=== PATIENT | female | born 1985 | race Two or more races ===

== ENCOUNTER 2019-01-02 07:15 | Inpatient (IN) | payer OTHER ==
[2019-01-02 08:35] VITALS: BMI 33.6
[2019-01-02 09:10] LABS: BASO % 0.2 % (0-2.0); EOS % 1.3 % (0-4.5); HEMATOCRIT 35.1 % (32.4-45.2); HEMOGLOBIN 11.7 GM/dL (10.7-15.3); LYMPH % 15.4 % (8-40); MCH 27.4 pg (25.7-33.7); MCHC 33.2 g/dl (32.0-36.0); MEAN CELL VOLUME 82.4 fl (80-96); MEAN PLT VOLUME 8.5 fl (7.5-11.1); MONO % 5.2 % (3.8-10.2); NEUT % 77.9 % (42.8-82.8); PLATELET COUNT 234 K/MM3 (134-434); RBC 4.26 M/mm3 (3.60-5.2); RDW 15.1 % (11.6-15.6); WHITE BLOOD COUNT 12.1 K/mm3 (4.0-10.0)
[2019-01-02 09:17] LABS: INR 0.92 (0.83-1.09); PROTHROMBIN TIME (PATIENT) 10.8 SEC (9.7-13.0)
[2019-01-02 09:20] LABS: ACTIVATED PTT 27.6 SECONDS (25.2-36.5)
[2019-01-02 09:50] LABS: BLOOD UREA NITROGEN 15.3 mg/dL (7-18); CALCIUM 9.8 mg/dL (8.5-10.1); CREATININE 0.6 mg/dL (0.55-1.3); POTASSIUM 3.9 mmol/L (3.5-5.1)
--- NOTE | 2019-01-02 10:54 | HP ---
Past Medical History - Primary Care Physician PCP:: Casandra Yost - Admission Chief Complaint: Cervidil induction. insulin dependent diabetes History Source: Patient Limitations to Obtaining History: No Limitations - Past Medical History ...: 6 ...Para: 1 ...Term: 1 ...: 0 ...Spon : 1 ...Induced : 3 ...Multiple Gestation: 0 ...EDC by Sono: 01/11/19 - Past Surgical History Hx Myomectomy: No Hx Transabdominal Cerclage: No - Smoking History Smoking history: Never smoked - Alcohol/Substance Use Hx Alcohol Use: No History of Substance Use: reports: None - Social History History of Recent Travel: No Home Medications - Allergies Allergies/Adverse Reactions: Allergies Allergy/AdvReac Type Severity Reaction Status Date / Time No Known Allergies Allergy Verified 11/30/18 16:50 - Home Medications Home Medications: Ambulatory Orders Insulin Aspart [Novolog] 30 units SQ TID 11/16/18 Insulin Detemir [Levemir Flextouch] 70 units SQ HS 11/16/18 Metformin HCl [Glucophage] 1 tab PO BID 11/16/18 Vits96/Iron Fum/Folic [ Tablet] 1 tab PO DAILY 11/16/18 Review of Systems - Review of Systems Constitutional: reports: No Symptoms Eyes: reports: No Symptoms HENT: reports: No Symptoms Neck: reports: No Symptoms Cardiovascular: reports: No Symptoms Respiratory: reports: No Symptoms Gastrointestinal: reports: No Symptoms Genitourinary: reports: No Symptoms Breasts: reports: No Symptoms Reported Musculoskeletal: reports: No Symptoms Integumentary: reports: No Symptoms Neurological: reports: No Symptoms Endocrine: reports: No Symptoms Hematology/Lymphatic: reports: No Symptoms Psychiatric: reports: No Symptoms Physical Exam - Maternity Vital Signs: Vital Signs Temperature 98.3 F 01/02/19 09:00 Pulse Rate 89 01/02/19 10:00 Respiratory Rate 20 01/02/19 10:00 Blood Pressure 128/77 01/02/19 10:00 O2 Sat by Pulse Oximetry (%) Constitutional: Yes: Well Nourished, No Distress Cardiovascular: Yes: WNL Lungs: Clear to auscultation Breast(s): Yes: WNL - Abdominal Exam/OB Fundal Height: 40 Number of Fetuses: Single Presentation: Vertex Contractions: No Monitor Mode: External Heart Rate (range): 140 Heart Rate Location: [facility] Category: I - Vaginal Exam/OB Dilatation (cm): 2 Effacement (%): 70 Amniotic Membrane Status: Intact Presentation: Vertex/Position - Physical Exam Musculoskeletal: Yes: WNL Extremities: Yes: WNL - Labs Lab Results: CBC, BMP 01/02/19 08:33 01/02/19 08:33 Hemorrhage Risk Assessment - Risk Factors Risk Score: 1 Risk Level: Medium Risk Problem List - Problems (1) Diabetes mellitus, insulin dependent (IDDM), controlled Code(s): E11.9 - TYPE 2 DIABETES MELLITUS WITHOUT COMPLICATIONS; Z79.4 - RESIDENTIAL (CURRENT) USE OF INSULIN (2) 38 weeks gestation of Code(s): Z3A.38 - 38 WEEKS GESTATION OF Assessment/Plan IDDm - controlled by insulin AM novolog 20 metformin 100 BID levemir 70 units at bedtime 38.6 week Cat 1 Plan cervidil ada diet metformin 1000mg BID levamir 70units HS novalog 30 AC
[2019-01-02] MEDS ORDERED: BUTORPHANOL TARTRATE 1 MG/ML VIAL IVPB ONE (10:57)
[2019-01-02 11:30] LABS: ALBUMIN 2.8 g/dl (3.4-5.0); BILIRUBIN,TOTAL 0.3 mg/dL (0.2-1); TOT PROT 6.4 g/dl (6.4-8.2)
[2019-01-02] MEDS ORDERED: DINOPROSTONE 10 MG VAGINAL SUPPOSITORY VG ONE (11:45)
[2019-01-02] MEDS: INSULIN (NOVOLOG) ASPART 100 UNITS/ML 10ML VIAL SQ SCH ×2 (12:07→17:30)
[2019-01-02] MEDS: ELECTROLYTE-148 SOLN 1,000 ML IV SCH (16:00)
[2019-01-02] MEDS: metFORMIN HCL 500 MG TABLET (FP) PO SCH (18:33)
[2019-01-02] MEDS: INSULIN (LEVEMIR) 100 UNITS/ML UNITS SQ SCH (22:10)
--- NOTE | 2019-01-02 22:32 | PN ---
Ante-Partal Exam - Subjective Subjective: Pt desires pitocin Vital Signs: Vital Signs Temperature 98.2 F 01/02/19 18:00 Pulse Rate 93 H 01/02/19 18:00 Respiratory Rate 20 01/02/19 18:00 Blood Pressure 130/74 01/02/19 18:00 O2 Sat by Pulse Oximetry (%) Bleeding: No Headache: No - Contractions Contractions: Yes Regularity: Irregular Monitor Mode: External - Exam during Labor Variability: Moderate Heart Rate Location: [facility] Category: I Monitor Decelerations: None Exam: Vaginal Amniotic Membrane Status: Intact Presentation: Vertex - Intrapartum Hemorrhage Risk Risk Score: 0 Risk Level: Low Risk - Assessment/Plan Assessment/Plan: Prodromal labor IUP at 41 week Plan Pitocin augmentation
[2019-01-02] MEDS ORDERED: OXYTOCIN 30 UNITS in 0.9% NS 30 UNIT/500 ML INFUS.BAG IVPB SCH (23:00)
--- NOTE | 2019-01-02 23:00 | LDN ---
Oxytocin Pre-Use Checklist Date and Time completed: 01/02/19 6414 Physician order on chart: Yes Current history and physical on chart: Yes Indication for induction is documented: Yes record on chart: Yes Pelvis is documented by physician to be clinically adequate: Yes Estimated weight within past week (clinical or sono): Less than 4250 grams in a diabetic woman Gestational age is documented: Yes Consent signed: Yes Physician with privileges: is aware of the induction, is readily available, is documented in the medical record Status of the cervix is assessed and documented: Yes Presentation is assessed and documented: Yes Assessment completed and includes: A minimum of 30 minutes of monitoring is required prior to start, At least 2 accelerations (15bpm x 15sec) in 30 minutes are present, Adequate variability
[2019-01-02] MEDS ORDERED: NALOXONE HCL 0.4 MG/ML VIAL IVPUSH PRN (23:14)
[2019-01-02] MEDS ORDERED: FENTANYL/BUPIVACAINE/NS/PF - PCEA - 50 ML DISP.SYRIN EP SCH (23:15)
[2019-01-03] MEDS ORDERED: OXYTOCIN 30 UNITS in 0.9% NS 30 UNIT/500 ML INFUS.BAG IVPB ONE (00:16)
--- NOTE | 2019-01-03 01:53 | PN ---
Ante-Partal Exam - Subjective Subjective: Pt with variable decels Vital Signs: Vital Signs Temperature 98.3 F 01/03/19 00:00 Pulse Rate 85 01/03/19 00:20 Respiratory Rate 18 01/03/19 00:20 Blood Pressure 129/73 01/03/19 00:20 O2 Sat by Pulse Oximetry (%) 97 01/03/19 00:20 Bleeding: No Headache: No Visual changes: No Right upper quadrant pain: No - Contractions Contractions: Yes Regularity: Regular Intensity: Mild/Mod Monitor Mode: External - Exam during Labor Variability: Moderate Category: II Monitor Accelerations: Present Monitor Decelerations: Variable Exam: Vaginal Dilatation (cm): 2 cm Effacement (%): 60 Amniotic Membrane Status: Intact Presentation: Vertex Station: -3 - Intrapartum Hemorrhage Risk Risk Score: 0 Risk Level: Low Risk - Assessment/Plan Assessment/Plan: Cat 2 tracing will DC pitocin if improves will restart Plan continue present management reajust toco
[2019-01-03] MEDS ORDERED: FENTANYL/BUPIVACAINE/NS/PF - PCEA - 50 ML DISP.SYRIN EP ONE ×3 (04:39→14:36)
--- NOTE | 2019-01-03 06:52 | PN ---
Delivery - Delivery Vaginal Delivery: No Problems (Tight Nuchal cord X 1 shoulders delivered with Krysta manuver) Type of Anesthesia: None Episiotomy/Laceration: None, Periurethral Extnsion/lac EBL (cc): 600 Delivery, Single - Stages of Labor Placenta: Yes: Spontaneous - Condition of Infant Gender: Male - [place] Feeding Plan Initial Plan: Exclusive throughout hospitalization
[2019-01-03] MEDS ORDERED: WITCH HAZEL 50% (TUCKS) 40 PAD/JAR PAD TP PRN (06:59)
[2019-01-03] MEDS ORDERED: METHYLERGONOVINE MALEATE 0.2 MG/1 ML AMP IM PRN ×2 (06:59→17:57)
[2019-01-03] MEDS ORDERED: BENZOCAINE 28 GM HEMORRHOIDAL OINTMENT PR PRN (06:59)
[2019-01-03] MEDS ORDERED: IBUPROFEN 600 MG TABLET (FP) PO PRN (06:59)
[2019-01-03] MEDS ORDERED: BENZOCAINE 20% 57 GM BOTTLE TP PRN (06:59)
[2019-01-03] MEDS: ELECTROLYTE-148 SOLN 1,000 ML IV SCH ×2 (07:00→14:35)
[2019-01-03] MEDS: INSULIN (NOVOLOG) ASPART 100 UNITS/ML 10ML VIAL SQ SCH ×3 (09:18→19:12)
[2019-01-03] MEDS: metFORMIN HCL 500 MG TABLET (FP) PO SCH ×2 (09:18→19:12)
[2019-01-03] MEDS: FERROUS SO4 325 MG TABLET (FP) PO SCH ×2 (09:19→22:09)
--- NOTE | 2019-01-03 11:14 | PN ---
Ante-Partal Exam - Subjective Subjective: Pt comfortable with epidural Vital Signs: Vital Signs Temperature 98.3 F 01/03/19 10:00 Pulse Rate 87 01/03/19 09:45 Respiratory Rate 20 01/03/19 09:45 Blood Pressure 127/69 01/03/19 09:45 O2 Sat by Pulse Oximetry (%) 98 01/03/19 09:45 Bleeding: Yes Bleeding Description: Mild Headache: No Visual changes: No Right upper quadrant pain: No - Contractions Contractions: Yes Regularity: Regular Intensity: Moderate - Exam during Labor Heart Rate: 140 Variability: Moderate Category: I Monitor Accelerations: Present Monitor Decelerations: None Exam: Vaginal Dilatation (cm): 2-3 Effacement (%): 25 Amniotic Membrane Status: Intact (intact upon exam, AROM for clear fluid at this examination) Presentation: Vertex Station: -2 - Assessment/Plan Assessment/Plan: PT insulin dependent DM, BGs all within range has been NPO cervidil removed, now on pitocin AROm for clear fluid continue pitocin augmentation intermittently category 2 tracing, currently category 1, continue close monitoring
[2019-01-03] MEDS ORDERED: ACETAMINOPHEN 325 MG TABLET (FP) ONE (12:12)
[2019-01-03] MEDS: ACETAMINOPHEN 325 MG TABLET (FP) PO PRN (12:15)
--- NOTE | 2019-01-03 12:25 | PN ---
Ante-Partal Exam - Subjective Subjective: Pt comfortable with epidural. Vital Signs: Vital Signs Temperature 98.3 F 01/03/19 10:00 Pulse Rate 82 01/03/19 11:45 Respiratory Rate 20 01/03/19 11:45 Blood Pressure 124/76 01/03/19 11:45 O2 Sat by Pulse Oximetry (%) 95 01/03/19 11:45 Bleeding: Yes Bleeding Description: Mild Headache: No Visual changes: No Right upper quadrant pain: No Pain (scale 1-10): 0 - Contractions Contractions: Yes Regularity: Regular - Exam during Labor Heart Rate: 145 Variability: Moderate Category: II Monitor Accelerations: Present Monitor Decelerations: Variable (intermittent variable and late decelerations) Exam: Vaginal Dilatation (cm): 3 Effacement (%): 50 Amniotic Membrane Status: Ruptured (AROM for clear fluid at last exam) Presentation: Vertex Station: -2 - Assessment/Plan Assessment/Plan: Continue pitocin augmentation intermittently category 2 tracing - discussed with pt - if unable to continue with pitocin or if pt doesn't continue to make progress will plan for delivery, pt aware will re evaluate 1-2 hours IDDM - BGs WNL GBS negative
[2019-01-03] MEDS ORDERED: LIDO 2%/EPI 1:200000 PRESRVFRE (20 ML SDVIAL) ONE (15:55)
[2019-01-03] MEDS ORDERED: OXYTOCIN 10 UNITS/ML VIAL ONE (17:09)
[2019-01-03] MEDS ORDERED: ONDANSETRON 4 MG/2 ML VIAL IVPUSH PRN (17:31)
[2019-01-03] MEDS ORDERED: morphine SULFATE/PF 0.5 MG/ML (2cc Syringe - QUVA) EP ONE (17:31)
[2019-01-03] MEDS ORDERED: ACETAMINOPHEN 1000 MG/100 ML VIAL (NON FORMULARY) IVPB ONE (17:33)
[2019-01-03] MEDS ORDERED: LACTATED RINGERS SOLUTION 1,000 ML IV SCH (17:45)
--- NOTE | 2019-01-03 18:08 | OP ---
Operative Note - Note: Operative Date: 01/03/19 Pre-Operative Diagnosis: IDDM, recurrent variable and late decelerations Operation: primary LTCS Findings: normal b/l tubes and ovaries, baby in OP presentation live male fetus Surgeon: Christie Hensley Heat And Frost Insulator: Rayray Germain Anesthesiologist/SOIL SCIENTIST: Cipriano Harris Anesthesia: Epidural Specimens Removed: placenta, cord gas, cord blood Estimated Blood Loss (mls): 800 Operative Report Dictated: Yes
--- NOTE | 2019-01-03 18:26 | PN ---
Delivery - Delivery Section: Primary, Low Flap Transverse Type of Anesthesia: Epidural Episiotomy/Laceration: None EBL (cc): 800 Delivery, Single - Stages of Labor Date of Delivery: 01/03/19 Date Placenta Delivered: 01/03/19 Placenta: Yes: Spontaneous - Condition of [place] Machine Operator/Jail Officer Present: Yes Name: Swati Ray Infant Gender: Male - 1 Minute Total Score: 2 5 Minutes Total Score: 8 - Feeding Plan Initial Plan: Exclusive throughout hospitalization Remarks - Remarks Remarks: Primary LTCS for recurrent decelerations delivery complicated by need to convert to breech presentation and need for nitroglycerin to relax uterus in order to deliver baby EBL 800 sponge, needle and instrument count correct Apgars 2/8 see operative note dictated for full delivery report
[2019-01-03] MEDS ORDERED: OXYTOCIN 20 UNITS in 0.9% NS 20 UNIT/1,000 ML INFUS.BAG IV ONE (19:03)
[2019-01-03] MEDS: OXYTOCIN 20 UNITS in 0.9% NS 20 UNIT/1,000 ML INFUS.BAG IV SCH (19:05)
[2019-01-03] MEDS ORDERED: ACETAMINOPHEN INJECTION 100 ML IVPB ONE (19:37)
[2019-01-03] MEDS ORDERED: SENNOSIDES/DOCUSATE COMBO (SENNA PLUS) TABLET (UD) PO SCH (22:00)
[2019-01-03] MEDS ORDERED: KETOROLAC TROMETHAMINE 30 MG/1 ML VIAL IVPUSH PRN (22:44)
[2019-01-03] MEDS ORDERED: ACETAMINOPHEN 1000 MG/100 ML VIAL (NON FORMULARY) IVPB PRN (22:45)
[2019-01-03] MEDS: INSULIN (LEVEMIR) 100 UNITS/ML UNITS SQ SCH (22:51)
[2019-01-04] MEDS: OXYTOCIN 20 UNITS in 0.9% NS 20 UNIT/1,000 ML INFUS.BAG IV SCH (02:56)
[2019-01-04] MEDS: INSULIN (NOVOLOG) ASPART 100 UNITS/ML 10ML VIAL SQ SCH ×4 (06:40→17:43)
[2019-01-04] MEDS: metFORMIN HCL 500 MG TABLET (FP) PO SCH ×2 (06:40→17:10)
[2019-01-04 08:31] LABS: BASO % 0.5 % (0-2.0); EOS % 0.2 % (0-4.5); HEMATOCRIT 31.5 % (32.4-45.2); HEMOGLOBIN 10.3 GM/dL (10.7-15.3); LYMPH % 8.8 % (8-40); MCH 27.2 pg (25.7-33.7); MCHC 32.8 g/dl (32.0-36.0); MEAN PLT VOLUME 8.4 fl (7.5-11.1); MONO % 4.8 % (3.8-10.2); NEUT % 85.7 % (42.8-82.8); PLATELET COUNT 196 K/MM3 (134-434); RBC 3.79 M/mm3 (3.60-5.2); WHITE BLOOD COUNT 16.2 K/mm3 (4.0-10.0)
--- NOTE | 2019-01-04 08:41 | OP ---
DATE OF OPERATION: 01/03/2019 PREOPERATIVE DIAGNOSIS: Insulin-dependent diabetic, induced at 38.6 weeks gestation with current variable and late decelerations, failure to progress. POSTOPERATIVE DIAGNOSIS: Insulin-dependent diabetic, induced at 38.6 weeks gestation with current variable and late decelerations, failure to progress; true knot in the umbilical cord. PROCEDURE: Primary low transverse section. SURGEON: Christie Hensley DO HYDRO EXCAVATION OPERATOR: GARRISON Nieto ANESTHESIA: Epidural initially placed by Zuleyma Varela DO, bolused and maintained by Miles Harris MD, throughout the section. ESTIMATED BLOOD LOSS: 800 mL. COMPLICATIONS: Included need to convert delivery to footling breech presentation secondary to position of the baby. COUNT: Sponge, needle, and instrument count correct. SPECIMENS REMOVED: Included placenta, cord blood gases, and cord blood. DISPOSITION: Stable to PACU. BRIEF HISTORY AND PROCEDURE: Patient is a 33-year-old female who was admitted to labor and delivery on January 02, 2019, for induction of labor secondary to insulin-dependent diabetes. She was 38.5 weeks upon admission. She received Cervidil throughout the day on January 02, and in the evening, the Cervidil was removed and Pitocin was started. Pitocin was continued throughout the night over January 02. In the morning of January 03, 2019, patient's membranes were artificially ruptured, and Pitocin was continued. The patient had intermittent category 2 tracing. However, had moderate variability and had accelerations. In the afternoon of January 03, 2019, the patient began having recurrent variable decelerations. At which point, the Pitocin was turned off, and the cervix was found to still be 3 cm dilated, which was unchanged from the exam in the morning. The patient was counseled on her options, and a delivery was planned. Consents for the procedure were signed. Patient was then taken back to the operating room, given a bolus of her epidural anesthesia, prepped and draped in the usual sterile fashion, and a hard timeout was performed. A Pfannenstiel incision was created in the skin and carried down to the underlying layer of rectus fascia sharply. The fascia was incised on either side of the midline sharply, and the fascia was tented upward and dissected off the underlying layer of rectus muscle. The musculature was identified and laterally. The peritoneum was entered bluntly and carefully dissected to allow for adequate room for delivery. A bladder blade was inserted. A low transverse incision was created on the uterus, which was extended in a superolateral direction bluntly as well as with bandage scissors sharply. The uterine muscle was very thick at this stage, and after attempted delivery of head, we were unable to elevate the head out of the pelvis. At which point, it was decided to convert the delivery to a breech delivery. feet were identified and elevated out of the abdomen. The baby was delivered up to the level of the axilla. The torso was rotated 180 degrees clockwise, and the left arm was slipped anteriorly and downward across the chest in a flexed position and delivered. The same was repeated with the right arm after rotation of the baby 180 degrees counterclockwise. The head was then attempted to be delivered in the flexed position. However, it was not delivering easily. At which point, Anesthesia administered nitroglycerin to relax the uterus. At which point, the head was able to be delivered in a flexed position. The cord was clamped twice and cut in between. was immediately taken over to the neonatology staff to be assessed where scores of 2 and 8 were assigned. Cord blood gases were collected at this time. The uterus was cleared of all amniotic membrane and blood clot with a dry lap sponge. The hysterotomy was reapproximated in a double-layer closure first using 1 Vicryl in a running locked fashion, second using 0 Biosyn in a running fashion. Excellent hemostasis was achieved. The posterior cul-de-sac was suctioned of blood clot and fluid. The uterus was placed back into the abdomen. Bilateral gutters were inspected and cleared of all blood clot and debris, and bilateral tubes and ovaries were noted to be normal. The hysterotomy was again noted to be hemostatic. The peritoneum was reapproximated using 2-0 chromic in a running fashion. The musculature was reapproximated in a single interrupted suture using 2-0 chromic. The fascia was reapproximated using 1 Vicryl in a running fashion. Subcutaneous tissue was irrigated and reapproximated using 0 Vicryl in a running fashion. The skin was reapproximated in subcuticular fashion using 3-0 Vicryl. Steri-Strips were applied. Sponge, needle and instrument counts were reported to be correct. The patient was taken to the recovery room and recovering in stable condition at the time of this dictation. CHRISTIE HENSLEY DO /[id number] MTDD
--- NOTE | 2019-01-04 09:27 | PN ---
Post Progress Note - Subjective Subjective: Pt seen/examined, doing well. No complaints. Pain controlled, tolerating clears. BGs low overnight, hadn't eaten. Had clears this morning, awaiting a.m. BG. Morrison draining clear yellow urine. Type of Delivery: Primary C/S Vital Signs: Vital Signs Temperature 98.4 F 01/04/19 06:00 Pulse Rate 93 H 01/04/19 06:00 Respiratory Rate 18 01/04/19 08:00 Blood Pressure 106/56 L 01/04/19 06:00 O2 Sat by Pulse Oximetry (%) 98 01/03/19 18:35 Uterus: Yes: Fundus Firm Incision: Yes: Dressing dry and intact Lochia, amount: Small Extremities: Yes: Calves non-tender Perineum: Yes: Intact Activity: Ambulating - Labs Labs: CBC WBC 16.2 K/mm3 (4.0-10.0) H 01/04/19 07:55 RBC 3.79 M/mm3 (3.60-5.2) 01/04/19 07:55 Hgb 10.3 GM/dL (10.7-15.3) L 01/04/19 07:55 Hct 31.5 % (32.4-45.2) L 01/04/19 07:55 MCV 83.0 fl (80-96) 01/04/19 07:55 MCH 27.2 pg (25.7-33.7) 01/04/19 07:55 MCHC 32.8 g/dl (32.0-36.0) 01/04/19 07:55 RDW 15.0 % (11.6-15.6) 01/04/19 07:55 Plt Count 196 K/MM3 (134-434) 01/04/19 07:55 MPV 8.4 fl (7.5-11.1) 01/04/19 07:55 Absolute Neuts (auto) 13.9 K/mm3 (1.5-8.0) H 01/04/19 07:55 Neutrophils % 85.7 % (42.8-82.8) H 01/04/19 07:55 Lymphocytes % 8.8 % (8-40) D 01/04/19 07:55 Monocytes % 4.8 % (3.8-10.2) 01/04/19 07:55 Eosinophils % 0.2 % (0-4.5) D 01/04/19 07:55 Basophils % 0.5 % (0-2.0) 01/04/19 07:55 Nucleated RBC % 0 % (0-0) 01/04/19 07:55 Problem List - Problems (1) Diabetes mellitus, insulin dependent (IDDM), controlled Code(s): E11.9 - TYPE 2 DIABETES MELLITUS WITHOUT COMPLICATIONS; Z79.4 - SENIOR CARE (CURRENT) USE OF INSULIN (2) delivery delivered Code(s): O82 - ENCOUNTER FOR DELIVERY WITHOUT INDICATION Assessment/Plan Doing well advance diet as tolerated - diabetic diet Dr. Aguiar consulted from endocrinology, hold meds for now as pt only on clears, will start glucophage when tolerating diet or if BGs elevated and await endocrine consult d/c aristeo Larsen for VTE PPx
[2019-01-04] MEDS: SIMETHICONE 80 MG TAB.CHEW (FP) PO PRN ×3 (09:39→21:00)
[2019-01-04] MEDS: IBUPROFEN 600 MG TABLET (FP) PO PRN (09:39)
[2019-01-04] MEDS: ACETAMINOPHEN 325 MG TABLET (FP) PO PRN ×3 (09:39→21:00)
[2019-01-04] MEDS: FERROUS SO4 325 MG TABLET (FP) PO SCH ×2 (11:02→23:27)
[2019-01-04] MEDS: ENOXAPARIN NA (PORCINE) 40 MG/0.4 ML DISP.SYRIN SQ SCH (11:08)
[2019-01-04] MEDS: oxyCODONE HCL 5 MG TABLET PO PRN ×2 (16:54→21:01)
[2019-01-04] MEDS ORDERED: BISACODYL 10 MG SUPP.RECT RC PRN (18:00)
[2019-01-04] MEDS ORDERED: INSULIN ASPART 30 UNIT SQ SCH (22:00)
[2019-01-04] MEDS ORDERED: METFORMIN HCL PO SCH (22:00)
[2019-01-04] MEDS: INSULIN (LEVEMIR) 100 UNITS/ML UNITS SQ SCH (22:42)
[2019-01-05] MEDS: SIMETHICONE 80 MG TAB.CHEW (FP) PO PRN ×3 (03:25→22:09)
[2019-01-05] MEDS: ACETAMINOPHEN 325 MG TABLET (FP) PO PRN ×4 (03:25→22:08)
[2019-01-05] MEDS: oxyCODONE HCL 5 MG TABLET PO PRN ×2 (03:26→10:26)
--- NOTE | 2019-01-05 07:23 | PN ---
Post Progress Note - Subjective Subjective: Doing well. Blood sugar fluctuates and get low at night. Post Day: 2 Type of Delivery: Primary C/S Vital Signs: Vital Signs Temperature 98.6 F 01/04/19 21:32 Pulse Rate 107 H 01/04/19 21:32 Respiratory Rate 20 01/04/19 21:32 Blood Pressure 109/68 01/04/19 21:32 O2 Sat by Pulse Oximetry (%) 98 01/03/19 18:35 Breast Exam: Yes: Soft Uterus: Yes: Fundus @ umbilicus Incision: Yes: Dressing dry and intact Abdomen/GI: Yes: Abdomen soft, Tolerating PO Lochia: Yes: Rubra Lochia, amount: Small Extremities: Yes: Calves non-tender Perineum: Yes: Intact Activity: Ambulating - Labs Labs: CBC WBC 16.2 K/mm3 (4.0-10.0) H 01/04/19 07:55 RBC 3.79 M/mm3 (3.60-5.2) 01/04/19 07:55 Hgb 10.3 GM/dL (10.7-15.3) L 01/04/19 07:55 Hct 31.5 % (32.4-45.2) L 01/04/19 07:55 MCV 83.0 fl (80-96) 01/04/19 07:55 MCH 27.2 pg (25.7-33.7) 01/04/19 07:55 MCHC 32.8 g/dl (32.0-36.0) 01/04/19 07:55 RDW 15.0 % (11.6-15.6) 01/04/19 07:55 Plt Count 196 K/MM3 (134-434) 01/04/19 07:55 MPV 8.4 fl (7.5-11.1) 01/04/19 07:55 Absolute Neuts (auto) 13.9 K/mm3 (1.5-8.0) H 01/04/19 07:55 Neutrophils % 85.7 % (42.8-82.8) H 01/04/19 07:55 Lymphocytes % 8.8 % (8-40) D 01/04/19 07:55 Monocytes % 4.8 % (3.8-10.2) 01/04/19 07:55 Eosinophils % 0.2 % (0-4.5) D 01/04/19 07:55 Basophils % 0.5 % (0-2.0) 01/04/19 07:55 Nucleated RBC % 0 % (0-0) 01/04/19 07:55 Assessment/Plan Status post primary Diabetes Continue blood glucose monitoring Ambulation Analgesia as needed
[2019-01-05] MEDS: INSULIN (NOVOLOG) ASPART 100 UNITS/ML 10ML VIAL SQ SCH ×3 (08:55→19:13)
[2019-01-05] MEDS: metFORMIN HCL 500 MG TABLET (FP) PO SCH ×2 (08:55→18:59)
[2019-01-05] MEDS: ENOXAPARIN NA (PORCINE) 40 MG/0.4 ML DISP.SYRIN SQ SCH (10:26)
[2019-01-05] MEDS: FERROUS SO4 325 MG TABLET (FP) PO SCH ×2 (10:26→22:09)
[2019-01-05] MEDS: IBUPROFEN 600 MG TABLET (FP) PO PRN ×2 (15:54→22:08)
--- NOTE | 2019-01-05 16:20 | PN ---
Teaching Attending Note Name of Resident: Whitney Motley ATTENDING PHYSICIAN STATEMENT I saw and evaluated the patient. I reviewed the resident's note and discussed the case with the resident. I agree with the resident's findings and plan as documented. consulted for hypoglycemia SUBJECTIVE:currently asymptomatic. states she has symptoms when sugars are low assoc with feeling off. currently feels ok. states food here is overall healthier than what she [facility], SOB, fever, chills, N/V/C/D appears pt has had DM for 10years since diagnosed with gestational DM with last . was poorly controlled but when discovered was this year became very strict with diet adn medication and has been controlled with last A1c in 5's at 7months . plans on OBJECTIVE: Last Vital Signs Temp Pulse Resp BP Pulse Ox 98.6 F 107 H 20 109/68 98 01/04/19 21:32 01/04/19 21:32 01/04/19 21:32 01/04/19 21:32 01/03/19 18:35 General NAD CV S1 S2 RRR no murmur/rub/gallop lungs CTA B/L no wheezing/rales/rhonchi ASSESSMENT AND PLAN: 33yo F wtih PMH DM presented for induction of labor that did not respond to cervidil or pitocin and subsequent underwent on 01/03 uncomplicated. course complicated by periods of hypogylcemia 1. Hypoglycemia- appears to be worse in the evenings. has been receiving home regimen of levemir 70units and novolog 20 units TID and metformin. agree with reducing levemir to 35 units. will d/c novolog at this time and start Iss and titrate as needed to optimize sugars. explained in detail goals and that its acceptable for it to be higher at this time. goal <180 2. Thank you for this consultative opportunity. will follow along with you 3. spoke with present at bedside. all questions answered. verbalized understanding and agreement with plan
--- NOTE | 2019-01-05 16:35 | CONSULT ---
Consultation: REQUESTING PROVIDER: Dr. Aguiar CONSULT REQUEST: We have been asked to medically evaluate this patient for blood sugar management. HISTORY OF PRESENT ILLNESS: 33 y/o F with PMHx of IDDM (Started as gestational DM, has been ongoing for the past 10 years), who was admitted on 01/02 to induce labor at 39 weeks, now s/p section (due to recurrent variable and late decelerations on Oxytocin; EBL 800) has had variable but symptomatic hypoglycemia since admission. Patient has been on metformin for many years; her regimen was adjusted to also include Detemir 70u HS and Novolog 30u TIDAC at the beginning of her when her A1c was found to be 13% by her Endocrinlogist Dr. Aguiar. She has maintained a diabetic diet during her and mentions that her A1c was 5% in November. Since admission, her Overnight and Early AM blood glucose has persistently been low, reaching the 40s. Last night when her BG reach 45 and she felt tremors, chills, blurry vision, dizziness and lightheadedness. Her symptoms improved with bread and orange juice. She reports similar episodes of hypoglycemia during this (atleast 3 episodes) with similar sx's that were always preceeded by decreased PO Intake. Denies any associated fevers, chills, chest pain, SOB, nausea, vomiting, diarrhea, polyuria, polydipsia. PMHx: as above PSHx: section Allergies: NKDA Social: Denies Tobacco use, Social EtOH use, Last used marijuana 2015 FHx: Mother with DM, HTN REVIEW OF SYSTEMS: As per HPI PHYSICAL EXAMINATION Vital Signs - 24 hr 01/04/19 01/04/19 01/04/19 17:00 18:00 21:32 Temperature 98.0 F 98.6 F Pulse Rate 70 107 H Respiratory 18 18 20 Rate Blood Pressure 128/70 109/68 GENERAL: A&Ox3, NAD HEAD: NCAT EYES: PERRL, EOMI ENT: Moist mucous membranes. NECK: No JVD LUNGS: Clear to auscultation bilaterally. No wheezes, no crackles HEART: Regular rate and rhythm, normal S1 and S2 without murmur ABDOMEN: Soft, nontender, not distended, hypoactive bowel sounds, no guarding, no rebound, Surgical dressing CDI EXTREMITIES: 2+ pulses, Trace edema. NEUROLOGICAL: Cranial nerves II-XII intact. Normal speech. SKIN: Warm, dry Laboratory Results - last 24 hr 01/04/19 01/04/19 01/05/19 18:55 22:24 00:07 POC Glucometer 97 45 98 01/05/19 01/05/19 01/05/19 03:21 06:25 11:22 POC Glucometer 119 117 144 Active Medications Acetaminophen (Tylenol -) 650 mg PO Q4H PRN PRN Reason: FEVER Last Admin: 01/05/19 15:55 Dose: 650 mg Acetaminophen (Ofirmev Injection -) 1,000 mg IVPB Q6H PRN PRN Reason: PAIN LEVEL 4 - 6 Bisacodyl (Dulcolax Suppository -) 10 mg OK PRN PRN PRN Reason: CONSTIPATION Diphenhydramine HCl (Benadryl Injection -) 25 mg IVPUSH Q4H PRN PRN Reason: Pruritis Enoxaparin Sodium (Lovenox -) 40 mg SQ DAILY [facility] Last Admin: 01/05/19 10:26 Dose: 40 mg Ferrous Sulfate (Feosol -) 325 mg PO BID [facility] Last Admin: 01/05/19 10:26 Dose: 325 mg Lactated Ringer's (Lactated Ringers Solution) 1,000 mls @ 125 mls/hr IV ASDIR [facility] Last Admin: 01/03/19 22:08 Dose: Not Given Oxytocin/Sodium Chloride (Normal Saline+20 Units Oxytocin -) 20 unit in 1,000 mls @ 125 mls/hr IV ASDIR [facility] Last Admin: 01/04/19 02:56 Dose: 125 mls/hr Ibuprofen (Motrin -) 600 mg PO Q4H PRN PRN Reason: PAIN LEVEL 1-5 Last Admin: 01/05/19 15:54 Dose: 600 mg Insulin Aspart (Novolog Vial) 20 units SQ TIDAC [facility] Last Admin: 01/05/19 13:13 Dose: 20 units Insulin Detemir (Levemir Vial) 35 units SQ HS [facility] Ketorolac Tromethamine (Toradol Injection -) 30 mg IVPUSH Q6H PRN PRN Reason: PAIN LEVEL 1-5 Stop: 01/08/19 22:44 Last Admin: 01/03/19 23:08 Dose: 30 mg Metformin HCl (Glucophage -) 1,000 mg PO BID@0700,1630 [facility] Last Admin: 01/05/19 08:55 Dose: 1,000 mg Methylergonovine Maleate (Methergine Injection -) 0.2 mg IM Q4H PRN PRN Reason: EXCESSIVE BLEEDING Naloxone HCl (Narcan -) 0.4 mg IVPUSH PRN PRN PRN Reason: Sedation Ondansetron HCl (Zofran Injection) 4 mg IVPUSH Q4H PRN PRN Reason: NAUSEA Oxycodone HCl (Roxicodone -) 10 mg PO Q4H PRN PRN Reason: PAIN LEVEL 7 - 10 Last Admin: 01/05/19 10:26 Dose: 10 mg Simethicone (Mylicon -) 80 mg PO Q4H PRN PRN Reason: GAS Last Admin: 01/05/19 15:54 Dose: 80 mg Witch Radha/Glycerin (Tucks Pads -) 1 pad TP PRN PRN PRN Reason: Pain - Topical ASSESSMENT/PLAN: 33 y/o F with PMHx of IDDM, who was admitted on 01/02 to induce labor at 39 weeks, now s/p section has had variable but symptomatic hypoglycemia since admission. #Symptomatic Hypoglycemia -Continue Metformin 1000mg BID -DC 20U Novolog ACTID -ISS ACTID -Levemir 35u HS Dispo: We will continue to follow the patient. Thank you for this consultative opportunity. Visit type - Emergency Visit Emergency Visit: Yes ED Registration Date: 01/02/19 Care time: The patient presented to the Emergency Department on the above date and was hospitalized for further evaluation of their emergent condition. - New Patient This patient is new to me today: Yes Date on this admission: 01/06/19 - Critical Care Critical Care patient: No ATTENDING PHYSICIAN STATEMENT I saw and evaluated the patient. I reviewed the resident's note and discussed the case with the resident. I agree with the resident's findings and plan as documented. SUBJECTIVE: OBJECTIVE: ASSESSMENT AND PLAN:
--- NOTE | 2019-01-05 18:36 | PATH ---
Surgical Pathology Report Patient Name: OLIVA MAR [facility]. Rec. 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 Specimen(s) Received PLACENTA Clinical History , IDDM on insulin, nonreassuring FHR, 38.6 wks Final Diagnosis PLACENTA, SECTION: 344 G THIRD TRIMESTER PLACENTA WITH TRIVASCULAR UMBILICAL CORD, UNREMARKABLE PLACENTAL MEMBRANES, FOCAL INTRAPARENCHYMAL INFARCT AND HEMORRHAGE (<1% OF PLACENTAL SURFACE). Electronically Signed Oliva Guadarrama M.D. Gross Description The specimen is received fresh labeled placenta and is a 344 gram, 18 x 15 x 1.5 cm. placenta with attached membranes and umbilical cord. The attached membranes are clear-to mendoza and translucent and insert marginally. The umbilical cord measures 30 cm. in length and averages 1 cm. in diameter. The cord inserts marginally. No true knots or strictures are identified. Cut surface of the umbilical cord reveals 3 vessels. The surface is lr-blue with minimal fibrin deposition and appropriate caliber vessels. The maternal surface is red-brown with focal defects. Sectioning reveals a mendoza lesion which measures 1.5 x 1 cm. Remainder of the parenchyma is red-brown, spongy parenchyma. Clinical Evaluator sections are submitted in three cassettes as follows: 1- membrane rolls and umbilical cord; 2-3- full thickness sections of placenta; 4- lesion. MLSZ/01/04/2019 sanml/01/04/2019
[2019-01-05] MEDS: INSULIN SLIDING SCALE (NOVOLOG) 1 VIAL SQ SCH (22:30)
[2019-01-05] MEDS: INSULIN (LEVEMIR) 100 UNITS/ML UNITS SQ SCH (22:35)
[2019-01-05] MEDS: BISACODYL 10 MG SUPP.RECT PR PRN (22:43)
[2019-01-06] MEDS: INSULIN SLIDING SCALE (NOVOLOG) 1 VIAL SQ SCH ×4 (07:10→22:05)
[2019-01-06 07:54] LABS: BASO % 0.2 % (0-2.0); EOS % 1.6 % (0-4.5); HEMATOCRIT 26.5 % (32.4-45.2); HEMOGLOBIN 8.7 GM/dL (10.7-15.3); LYMPH % 15.5 % (8-40); MCH 27.3 pg (25.7-33.7); MCHC 32.8 g/dl (32.0-36.0); MEAN CELL VOLUME 83.3 fl (80-96); MEAN PLT VOLUME 8.1 fl (7.5-11.1); MONO % 4.8 % (3.8-10.2); NEUT % 77.9 % (42.8-82.8); PLATELET COUNT 220 K/MM3 (134-434); RBC 3.18 M/mm3 (3.60-5.2); RDW 15.2 % (11.6-15.6); WHITE BLOOD COUNT 11.1 K/mm3 (4.0-10.0)
--- NOTE | 2019-01-06 08:24 | PN ---
Post Progress Note - Subjective Subjective: Pt seen/evaluated. Doing well. Pain controlled with medicatoin, tolerating diet, voiding. BGs overnight WNL. Appreciate endocrine consult and medication adjustment. OOB, voiding, passing flatus. NO other complaints/ issues. Type of Delivery: Primary C/S Vital Signs: Vital Signs Temperature 98.3 F 01/05/19 21:45 Pulse Rate 96 H 01/05/19 21:45 Respiratory Rate 18 01/05/19 21:45 Blood Pressure 111/69 01/05/19 21:45 O2 Sat by Pulse Oximetry (%) 98 01/03/19 18:35 Uterus: Yes: Fundus Firm Incision: Yes: Sutures intact Abdomen/GI: Yes: Abdomen soft Lochia: Yes: Rubra Lochia, amount: Small Extremities: Yes: Calves non-tender, Edema Perineum: Yes: Intact Activity: Ambulating - Labs Labs: CBC WBC 11.1 K/mm3 (4.0-10.0) H 01/06/19 07:20 RBC 3.18 M/mm3 (3.60-5.2) L 01/06/19 07:20 Hgb 8.7 GM/dL (10.7-15.3) L 01/06/19 07:20 Hct 26.5 % (32.4-45.2) L D 01/06/19 07:20 MCV 83.3 fl (80-96) 01/06/19 07:20 MCH 27.3 pg (25.7-33.7) 01/06/19 07:20 MCHC 32.8 g/dl (32.0-36.0) 01/06/19 07:20 RDW 15.2 % (11.6-15.6) 01/06/19 07:20 Plt Count 220 K/MM3 (134-434) 01/06/19 07:20 MPV 8.1 fl (7.5-11.1) 01/06/19 07:20 Absolute Neuts (auto) 8.6 K/mm3 (1.5-8.0) H 01/06/19 07:20 Neutrophils % 77.9 % (42.8-82.8) 01/06/19 07:20 Lymphocytes % 15.5 % (8-40) D 01/06/19 07:20 Monocytes % 4.8 % (3.8-10.2) 01/06/19 07:20 Eosinophils % 1.6 % (0-4.5) D 01/06/19 07:20 Basophils % 0.2 % (0-2.0) 01/06/19 07:20 Nucleated RBC % 0 % (0-0) 01/06/19 07:20 Problem List - Problems (1) Diabetes mellitus, insulin dependent (IDDM), controlled Code(s): E11.9 - TYPE 2 DIABETES MELLITUS WITHOUT COMPLICATIONS; Z79.4 - INCOME AUDITOR (CURRENT) USE OF INSULIN (2) delivery delivered Code(s): O82 - ENCOUNTER FOR DELIVERY WITHOUT INDICATION Assessment/Plan 33 y/o POD#3 s/p primary c section AFVSS anemia noted, will continue PNVs and PO Iron encourage ambulation regular diabetic diet and insulin regimen per endo routine care likely discharge home in a.m.
[2019-01-06] MEDS: oxyCODONE HCL 5 MG TABLET PO PRN ×2 (08:36→14:04)
[2019-01-06] MEDS: IBUPROFEN 600 MG TABLET (FP) PO PRN ×4 (08:37→22:15)
[2019-01-06] MEDS: metFORMIN HCL 500 MG TABLET (FP) PO SCH ×2 (08:58→17:22)
[2019-01-06] MEDS: ENOXAPARIN NA (PORCINE) 40 MG/0.4 ML DISP.SYRIN SQ SCH (10:59)
[2019-01-06] MEDS: FERROUS SO4 325 MG TABLET (FP) PO SCH ×2 (10:59→22:15)
[2019-01-06] MEDS: SIMETHICONE 80 MG TAB.CHEW (FP) PO PRN ×3 (14:04→22:15)
--- NOTE | 2019-01-06 15:03 | PN ---
Physical Exam: SUBJECTIVE: Patient seen and examined s/p c section her suger is better now and today it is 131 and had lower sugar today of 68. OBJECTIVE: Vital Signs Period Temp Pulse Resp BP Sys/Gordon Pulse Ox Last 24 Hr 97.9 F-98.3 F 89-96 18-18 111-124/69-72 GENERAL: The patient is awake, alert, and fully oriented, in no acute distress. HEAD: Normal with no signs of trauma. EYES: PERRL, extraocular movements intact, sclera anicteric, conjunctiva clear. No ptosis. ENT: Ears normal, nares patent, oropharynx clear without exudates, moist mucous membranes. NECK: Trachea midline, full range of motion, supple. LUNGS: Breath sounds equal, clear to auscultation bilaterally, no wheezes, no crackles, no accessory muscle use. HEART: Regular rate and rhythm, S1, S2 without murmur, rub or gallop. ABDOMEN: Soft, nontender, nondistended, normoactive bowel sounds, no guarding, no rebound, no hepatosplenomegaly, no masses. EXTREMITIES: 2+ pulses, warm, well-perfused, no edema. NEUROLOGICAL: Cranial nerves II through XII grossly intact. Normal speech, gait not observed. Laboratory Results - last 24 hr 01/05/19 01/05/19 01/06/19 18:12 22:06 03:34 WBC RBC Hgb Hct MCV MCH MCHC RDW Plt Count MPV Absolute Neuts (auto) Neutrophils % Lymphocytes % Monocytes % Eosinophils % Basophils % Nucleated RBC % POC Glucometer 59 162 67 01/06/19 01/06/19 01/06/19 07:07 07:20 11:59 WBC 11.1 H RBC 3.18 L Hgb 8.7 L Hct 26.5 L D MCV 83.3 MCH 27.3 MCHC 32.8 RDW 15.2 Plt Count 220 MPV 8.1 Absolute Neuts (auto) 8.6 H Neutrophils % 77.9 Lymphocytes % 15.5 D Monocytes % 4.8 Eosinophils % 1.6 D Basophils % 0.2 Nucleated RBC % 0 POC Glucometer 96 131 Active Medications Generic Name Dose Route Start Last Admin Trade Name Freq PRN Reason Stop Dose Admin Acetaminophen 650 mg 01/03/19 06:59 01/05/19 22:08 Tylenol - PO 650 mg Q4H PRN Administration FEVER Acetaminophen 1,000 mg 01/03/19 22:45 Ofirmev Injection - IVPB Q6H PRN PAIN LEVEL 4 - 6 Bisacodyl 10 mg 01/03/19 06:59 01/05/19 22:43 Dulcolax Suppository - LA 10 mg PRN PRN Administration CONSTIPATION Diphenhydramine HCl 25 mg 01/03/19 20:03 Benadryl Injection - IVPUSH Q4H PRN Pruritis Enoxaparin Sodium 40 mg 01/04/19 10:00 01/06/19 10:59 Lovenox - SQ 40 mg DAILY [facility] Administration Ferrous Sulfate 325 mg 01/03/19 10:00 01/06/19 10:59 Feosol - PO 325 mg BID [facility] Administration Lactated Ringer's 1,000 mls @ 125 mls/hr 01/03/19 17:45 01/03/19 22:08 Lactated Ringers Solution IV Not Given ASDIR [facility] Oxytocin/Sodium Chloride 20 unit in 1,000 mls @ 125 mls/hr 01/03/19 18:00 02:56 Normal Saline+20 Units Oxytocin - IV 125 mls/hr ASDIR [facility] Administration Ibuprofen 600 mg 01/03/19 17:31 01/06/19 14:03 Motrin - PO 600 mg Q4H PRN Administration PAIN LEVEL 1-5 Insulin Aspart 1 vial 01/05/19 22:00 01/06/19 12:01 Novolog Vial Sliding Scale - SQ Not Given ACHS [facility] Protocol Insulin Detemir 35 units 01/05/19 22:00 01/05/19 22:35 Levemir Vial SQ 35 units HS [facility] Administration Ketorolac Tromethamine 30 mg 01/03/19 22:44 01/03/19 23:08 Toradol Injection - IVPUSH 01/08/19 22:44 30 mg Q6H PRN Administration PAIN LEVEL 1-5 Metformin HCl 1,000 mg 01/02/19 16:30 01/06/19 08:58 Glucophage - PO 1,000 mg BID@0700,1630 KOKI Administration Methylergonovine Maleate 0.2 mg 01/03/19 06:59 Methergine Injection - IM Q4H PRN EXCESSIVE BLEEDING Naloxone HCl 0.4 mg 01/02/19 23:14 Narcan - IVPUSH PRN PRN Sedation Ondansetron HCl 4 mg 01/03/19 17:31 Zofran Injection IVPUSH Q4H PRN NAUSEA Oxycodone HCl 10 mg 01/03/19 17:57 01/06/19 14:04 Roxicodone - PO 10 mg Q4H PRN Administration PAIN LEVEL 7 - 10 Simethicone 80 mg 01/03/19 17:57 01/06/19 14:04 Mylicon - PO 80 mg Q4H PRN Administration GAS Witch Radha/Glycerin 1 pad 01/03/19 06:59 Tucks Pads - TP PRN PRN Pain - Topical ASSESSMENT/PLAN: s/p c section and insulin dependent diabetes Her sugar is better will continue the coverage and home use of Levemir 35 units at bed time. continue to monitor the finger stick sugar levels. Visit type - Emergency Visit Emergency Visit: Yes ED Registration Date: 01/02/19 Care time: The patient presented to the Emergency Department on the above date and was hospitalized for further evaluation of their emergent condition. - New Patient This patient is new to me today: Yes Date on this admission: 01/06/19 - Critical Care Critical Care patient: No - Discharge Referral Referred to [facility] No
[2019-01-06] MEDS: ACETAMINOPHEN 325 MG TABLET (FP) PO PRN ×2 (18:26→22:14)
[2019-01-06] MEDS: INSULIN (LEVEMIR) 100 UNITS/ML UNITS SQ SCH (22:15)
[2019-01-06] MEDS: BISACODYL 10 MG SUPP.RECT PR PRN (22:15)
--- NOTE | 2019-01-07 03:00 | DS ---
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: Vital Signs Temperature 98.4 F 01/06/19 20:59 Pulse Rate 93 H 01/06/19 20:59 Respiratory Rate 20 01/06/19 20:59 Blood Pressure 134/73 01/06/19 20:59 O2 Sat by Pulse Oximetry (%) 98 01/03/19 18:35 Constitutional: Yes: Well Nourished, No Distress, Calm Eyes: Yes: Conjunctiva Clear HENT: Yes: Atraumatic Neck: Yes: Supple Cardiovascular: Yes: Regular Rate and Rhythm Gastrointestinal: Yes: Normal Bowel Sounds, Soft ....Post : Yes: Uterus firm, Uterus non-tender Edema: No Wound/Incision: Yes: Clean/Dry, Well Approximated, Sutures Intact Neurological: Yes: Alert, Oriented Psychiatric: Yes: Alert, Oriented Labs: CBC, BMP 01/06/19 07:20 01/02/19 08:33 Delivery - Delivery Vaginal Delivery: No Problems Section: Primary, Low Flap Transverse Type of Anesthesia: Epidural Episiotomy/Laceration: None EBL (cc): 800 Delivery, Single - Stages of Labor Date of Delivery: 01/03/19 Time of Delivery: 17:07 Time Placenta Delivered: 17:08 Placenta: Yes: Spontaneous - 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 of 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 She underwent cervidil and pitocin induction, and on 01/03 ended up having a primary delivery due to recurrent decelerations with the heart rate tracing (see c section operative report for full details). The patient did well post op with recovery - on post op day 1 was voiding and tolerating diet and ambulating. The patient had symptomatic hypoglycemic episode and her insulin levels were adjusted per endocrine. On post op day 2 and 3 her blood sugars were stable and she was meeting all post op milestones. The patient then was stable and discharged home on post op day 4. - Instructions - Home Medications Comprehensive Discharge Medication List: Ambulatory Orders Insulin Aspart [Novolog] 30 units SQ TID 11/16/18 Insulin Detemir [Levemir Flextouch] 70 units SQ HS 11/16/18 Metformin HCl [Glucophage] 1 tab PO BID 11/16/18 Vits96/Iron Fum/Folic [ Tablet] 1 tab PO DAILY 11/16/18
[2019-01-07] MEDS: ACETAMINOPHEN 325 MG TABLET (FP) PO PRN ×3 (06:38→17:27)
[2019-01-07] MEDS: SIMETHICONE 80 MG TAB.CHEW (FP) PO PRN (06:38)
[2019-01-07] MEDS: IBUPROFEN 600 MG TABLET (FP) PO PRN ×3 (06:38→17:25)
[2019-01-07 08:19] VITALS: BP 123/70; PULSE 83; TEMP 98
[2019-01-07] MEDS: metFORMIN HCL 500 MG TABLET (FP) PO SCH ×2 (08:55→17:24)
[2019-01-07] MEDS: FERROUS SO4 325 MG TABLET (FP) PO SCH (10:00)
[2019-01-07] MEDS: INSULIN SLIDING SCALE (NOVOLOG) 1 VIAL SQ SCH ×3 (10:16→17:31)
[2019-01-07] MEDS: ENOXAPARIN NA (PORCINE) 40 MG/0.4 ML DISP.SYRIN SQ SCH (10:17)
== END 2019-01-07 17:45 | disposition home or self-care (01) | DRG 788 ==
LOC: JLDR 07:15 → J3W 01-03 20:10
PROVIDERS: ADMIT Obstetrics & Gynecology; ATTEND Obstetrics & Gynecology
PROC: 3E0P7VZ Introduction of Hormone into Female Reproductive, Via Natural or Artificial Opening (ICD-10-PCS; principal; 2019-01-03)
PROC: 10D00Z1 Extraction of Products of Conception, Low, Open Approach (ICD-10-PCS; 2019-01-03)
DX: O24.429 Gestational diabetes mellitus in childbirth, unspecified control (principal); O62.0 Primary inadequate contractions; O32.8XX0 Maternal care for other malpresentation of fetus, not applicable or unspecified; Z3A.38 38 weeks gestation of pregnancy; Z37.0 Single live birth; Z79.4 Long term (current) use of insulin
CPT/HCPCS: 36415; 36600; 80048; 80053; 82803; 82962; 85025; 85610; 85730; 86593; 86850; 86900; 86901; 88307-TC; J0131

== ENCOUNTER 2019-05-29 03:14 | Emergency (ER) | payer OTHER ==
[2019-05-29 05:45] VITALS: BP 130/81; PULSE 110; TEMP 98.3; BMI 32.5
[2019-05-29 06:44] LABS: EPI CELLS 2.8 /HPF (0-5/HPF); HYALINE CASTS 6 /lpf (0-8); URINE APPEARANCE CLOUDY; URINE BACTERIA 3698.7 /hpf (NEGATIVE); URINE BILIRUBIN NEGATIVE (NEGATIVE); URINE COLOR YELLOW; URINE GLUCOSE (UA) 3+ (NEGATIVE); URINE KETONE 1+ (NEGATIVE); URINE LEUK ESTERASE NEGATIVE (NEGATIVE); URINE NITRITE POSITIVE (NEGATIVE); URINE PROTEIN 1+ (NEGATIVE); URINE RBC 1 /hpf (0-4); URINE UROBILINOGEN 0.2 mg/dL (0.2-1.0); URINE WBC 4 /hpf (0-5)
[2019-05-29] MEDS ORDERED: FAMOTIDINE 20 MG/50 ML IVPB 20 MG/50 ML MG IVPB ONE ×2 (07:31→08:02)
[2019-05-29] MEDS ORDERED: DICYCLOMINE HCL 20 MG TABLET PO ONE (07:31)
[2019-05-29] MEDS ORDERED: SODIUM CHLORIDE 1,000 ML IV STA (07:31)
[2019-05-29] MEDS ORDERED: ONDANSETRON 4 MG/2 ML VIAL IVPUSH ONE (07:34)
[2019-05-29] MEDS ORDERED: ONDANSETRON 4 MG/2 ML VIAL ONE (08:01)
[2019-05-29] MEDS ORDERED: DICYCLOMINE HCL 10 MG CAPSULE ONE (08:01)
--- NOTE | 2019-05-29 08:01 | PDOC ---
History of Present Illness - General Chief Complaint: Pain Stated Complaint: ABD/BACK PAIN,DIARRHEA Time Seen by Provider: 05/29/19 07:22 History Source: Patient Exam Limitations: No Limitations - History of Present Illness Initial Comments: 05/29/19 07:56 Patient is a 33-year-old female with a history of insulin-dependent diabetes who presents to the ED with abdominal pain, vomiting, diarrhea and low back pain. She denies any dysuria or hematuria. She states her sugar this morning was in the 250s. She denies any fevers or chills. She does state that her went home from work after having similar symptoms this morning. The patient does admit to getting a flu shot this year. She denies any fevers or chills. She had a few episodes of both vomiting and diarrhea and denies blood in either. She does state that her back has been hurting for the last 4 days or so. She denies any allergies to medications. Pt does admit to taking Tylenol and ibuprofen frequently over the last 4 days. Past History - Past Medical History Allergies/Adverse Reactions: Allergies Allergy/AdvReac Type Severity Reaction Status Date / Time No Known Allergies Allergy Verified 05/29/19 05:45 Home Medications: Ambulatory Orders Insulin Detemir [Levemir Flextouch] 35 unit SQ HS 05/29/19 Metformin HCl [Glucophage] 1,000 mg PO BID 05/29/19 Sulfamethoxazole/Trimethoprim [Bactrim Ds -] 1 tab PO BID #14 tablet 05/29/19 Asthma: No Cancer: No Cardiac Disorders: No Diabetes: Yes HTN: No Seizures: No Thyroid Disease: No - Psycho Social/Smoking Cessation Hx Smoking History: Never smoked Hx Alcohol Use: No Drug/Substance Use Hx: No Hx Substance Use Treatment: No Review of Systems - Review of Systems Comments:: 05/29/19 07:57 - Review of Systems Able to Perform ROS?: Yes Constitutional: No: Fever, Chills, Loss of Appetite, Night Sweats, Weakness HEENTM: No: Eye Pain, Vision changes, Ear Pain, Throat Pain, Throat Swelling, Mouth Pain, Difficulty Swallowing Respiratory: No: Cough, Shortness of Breath, Wheezing, Sputum Production Cardiac (ROS): No: Chest Pain, Chest Tightness, Palpitations, Irregular Heart Beat, Edema ABD/GI: Positive: Nausea, Vomiting, Abdominal Pain, Diarrhea : No Dysuria, No Hematuria, No Frequency, No Urgency, No Vaginal Discharge Musculoskeletal: No: Muscle Pain, Joint Pain, Muscle Weakness, Neck Pain, Positive Low Back Pain Integumentary: No: Lesions, Rash Neurological: No: Headache, Numbness, Tingling, Weakness, Speech Difficulties *Physical Exam - Vital Signs Last Vital Signs Temp Pulse Resp BP Pulse Ox 98.3 F 110 H 17 130/81 96 05/29/19 03:15 05/29/19 03:15 05/29/19 03:15 05/29/19 03:15 05/29/19 03:15 - Physical Exam 05/29/19 07:58 - Physical Exam General Appearance: Nourished, Appropriately Dressed, Mild Distress secondary to general unwell feeling, nontoxic appearing HEENT: EOMI, Normal Voice, No Muffled/Hoarse voice, No Nasal Congestion, No Rhinorrhea, Hearing Grossly Normal Neck: Supple, No Lymphadenopathy (R), No Lymphadenopathy (L), No Rigidity, No Decreased range of motion Respiratory/Chest: Lungs Clear, Normal Breath Sounds. No Respiratory Distress, No Accessory Muscle Use, No Kussmaul's respirations Cardiovascular: Regular Rhythm, Regular Rate, S1, S2 Gastrointestinal/Abdominal: Normal Bowel Sounds, Soft. Non-tender, No Guarding , No Rebound, No Rigidity; abdomen is relatively benign without any tenderness to palpation. Normal bowel sounds appreciated. No CVA tenderness bilaterally. Musculoskeletal: Normal Inspection. No Decreased Range of Motion; no reproducible back pain to palpation. No midline tenderness to palpation full range of motion. Extremity: Normal Capillary Refill, Normal Inspection Integumentary: Normal Color, Dry. 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 NML intact, Fully Oriented, Alert, Normal Mood/Affect, Normal Response ED Treatment Course - LABORATORY CBC & Chemistry Diagram: 05/29/19 07:45 05/29/19 07:45 - ADDITIONAL ORDERS Additional order review: Laboratory Results 05/29/19 05/29/19 06:25 06:25 Urine Color Yellow Urine Appearance Cloudy Urine pH 5.0 Ur Specific [place] 1.025 Urine Protein 1+ H Urine Glucose (UA) 3+ H Urine Ketones 1+ H Urine Blood Negative Urine Nitrite Positive H Urine Bilirubin Negative Urine Urobilinogen 0.2 Ur Leukocyte Esterase Negative Urine WBC (Auto) 4 Urine RBC (Auto) 1 Urine Casts (Auto) 6 U Epithel Cells (Auto) 2.8 Urine Bacteria (Auto) 3698.7 Urine HCG, Qual Negative Medical Decision Making - Medical Decision Making 05/29/19 08:00 Assessment: Patient is a 33-year-old female with low back pain, vomiting, diarrhea and generalized abdominal pain. She has a history of diabetes. Plan: -Labs including urine and urine , CBC, CMP, influenza -Zofran/Pepcid/Bentyl -We will hold on any imaging at this point until further evaluation -IV fluids -We will reassess 05/29/19 12:00 Call to [facility] regarding pt follow up and care. Spoke with Dr. Card, one of the physicians at the facility. I have made her aware that we are treating the patient for UTI but she also has evidence of fatty liver with a transaminitis. She will be given GI follow up. Dr. Card is ok with the patient being discharged from the hospital but wants the patient to f/u in office tomorrow to repeat lab work and recheck her sugars. She has been made aware that the patient's sugars were elevated as well. Dr. Card agrees with this treatment and plan. The patient has been made aware of her findings and the fact that she has a UTI with elevated LFTs.The patient has been made aware of the plan and agrees with saul and chance as well. The patient is stable for discharge. Discharge - Discharge Information Problems reviewed: Yes Clinical Impression/Diagnosis: Acute cystitis without hematuria, Transaminitis, Nausea vomiting and diarrhea Condition: Stable Disposition: HOME - Additional Discharge Information Prescriptions: Sulfamethoxazole/Trimethoprim [Bactrim Ds -] 1 tab PO BID #14 tablet - Follow up/Referral Referrals: Andrew Plascencia MD [Staff Physician] - 1 week Kendy Card MD [Non Staff, Medical] - 24 hours (Follow up in office tomorrow as per Dr. Card) - Patient Discharge Instructions Patient Printed Discharge Instructions: DI for Urinary Tract Infection (UTI), DI for Vomiting -- Adult Additional Instructions: Get plenty of rest and drink plenty of fluids. Take antibiotics as prescribed and complete the entire course. Be sure to follow-up with your primary doctor tomorrow as they want to repeat your lab works. You have been given referral to GI and you should follow-up within 1 week for repeat evaluation. Do not take any Tylenol and this is can be causing your liver function to increase. - Post Discharge Activity Work/Back to School Note: Back to Work
[2019-05-29 08:49] LABS: BASO % 0.2 % (0-2.0); EOS % 1.1 % (0-4.5); HEMATOCRIT 40.4 % (32.4-45.2); HEMOGLOBIN 13.5 GM/dL (10.7-15.3); LYMPH % 8.7 % (8-40); MCHC 33.5 g/dl (32.0-36.0); MEAN CELL VOLUME 83.6 fl (80-96); MEAN PLT VOLUME 8.6 fl (7.5-11.1); MONO % 2.3 % (3.8-10.2); NEUT % 87.7 % (42.8-82.8); PLATELET COUNT 240 K/MM3 (134-434); RBC 4.83 M/mm3 (3.60-5.2); RDW 14.7 % (11.6-15.6)
[2019-05-29 09:10] LABS: ALBUMIN 3.5 g/dl (3.4-5.0); BILIRUBIN,TOTAL 0.6 mg/dL (0.2-1); BLOOD UREA NITROGEN 21.1 mg/dL (7-18); CALCIUM 9.2 mg/dL (8.5-10.1); POTASSIUM 4.7 mmol/L (3.5-5.1); TOT PROT 7.2 g/dl (6.4-8.2)
[2019-05-29] MEDS ORDERED: morphine CARPU-JECT 4 MG/1 ML DISP.SYRIN IVPUSH ONE (09:10)
[2019-05-29] MEDS ORDERED: morphine SULFATE 4 MG/ML VIAL ONE (09:51)
[2019-05-29] MEDS ORDERED: SULFAMETHOXAZOLE/TRIMETHOPRIM 800MG/160MG D.S. TABLET PO ONE (12:16)
[2019-05-29 12:22] LABS: URINE APPEARANCE CLEAR; URINE BILIRUBIN NEGATIVE (NEGATIVE); URINE COLOR YELLOW; URINE GLUCOSE (UA) 3+ (NEGATIVE); URINE KETONE NEGATIVE (NEGATIVE); URINE LEUK ESTERASE NEGATIVE (NEGATIVE); URINE NITRITE NEGATIVE (NEGATIVE); URINE PROTEIN TRACE (NEGATIVE); URINE UROBILINOGEN 0.2 mg/dL (0.2-1.0)
[2019-05-29] MEDS ORDERED: SULFAMETHOXAZOLE/TRIMETHOPRIM 800MG/160MG D.S. TABLET ONE (13:05)
== END 2019-05-29 13:06 | disposition home or self-care (01) ==
LOC: JER 03:14
PROC: 3E033GC Introduction of Other Therapeutic Substance into Peripheral Vein, Percutaneous Approach (ICD-10-PCS; principal; 2019-05-29)
PROC: 3E033GC Introduction of Other Therapeutic Substance into Peripheral Vein, Percutaneous Approach (ICD-10-PCS; 2019-05-29)
PROC: 3E033NZ Introduction of Analgesics, Hypnotics, Sedatives into Peripheral Vein, Percutaneous Approach (ICD-10-PCS; 2019-05-29)
DX: N30.00 Acute cystitis without hematuria (principal); R74.0 Nonspecific elevation of levels of transaminase and lactic acid dehydrogenase [LDH]; E10.65 Type 1 diabetes mellitus with hyperglycemia; Z79.4 Long term (current) use of insulin
CPT/HCPCS: 36415; 74177-TC; 80053; 81003; 83690; 84703; 85025; 87077; 87086; 87186; 87804; 99284-25; J7030; Q9967

== ENCOUNTER 2023-08-01 04:29 | Day surgery (SDC) | payer OTHER ==
[2023-07-28 12:47] VITALS: BMI 31.0
[2023-08-01] MEDS ORDERED: FENTANYL CITRATE/PF 50 MCG/ML VIAL ONE ×2 (17:16→17:36)
[2023-08-01] MEDS ORDERED: MIDAZOLAM HCL 2 MG/2 ML SINGLE DOSE VIAL ONE (17:16)
[2023-08-01] MEDS ORDERED: ONDANSETRON 4 MG/2 ML VIAL ONE (17:34)
[2023-08-01] MEDS ORDERED: PROPOFOL 20 ML ONE (17:37)
[2023-08-01 19:38] VITALS: RESP 18; TEMP 98.2
[2023-08-01 20:05] VITALS: BP 130/73; PULSE 72
== END 2023-08-01 19:56 | disposition home or self-care (01) ==
LOC: JASU-SURG 04:29
PROVIDERS: ATTEND Urology
PROC: 0TF4XZZ Fragmentation in Left Kidney Pelvis, External Approach (ICD-10-PCS; principal; 2023-08-01 16:30)
DX: N20.0 Calculus of kidney (principal)
CPT/HCPCS: 81025; 82962